=== PATIENT | male | born 1985 | race African-American/Black ===

== ENCOUNTER 2022-12-26 16:52 | Observation (INO) | payer OTHER ==
[2022-12-26 17:01] VITALS: BMI 26.5
[2022-12-26] MEDS ORDERED: amLODIPine BESYLATE 5 MG TABLET (FP) PO ONE (17:49)
[2022-12-26] MEDS ORDERED: LISINOPRIL 5 MG TABLET PO ONE (17:49)
[2022-12-26] MEDS ORDERED: HYDROCHLOROTHIAZIDE 25 MG TABLET (FP) PO ONE (17:49)
[2022-12-26] MEDS ORDERED: amLODIPine BESYLATE 5 MG TABLET (FP) ONE (18:02)
[2022-12-26] MEDS ORDERED: HYDROCHLOROTHIAZIDE 25 MG TABLET (FP) ONE (18:03)
[2022-12-26] MEDS ORDERED: LISINOPRIL 5 MG TABLET ONE (18:03)
[2022-12-26 19:10] LABS: BASO % 0.3 % (0-2.0); EOS % 1.6 % (0-4.5); HEMATOCRIT 42.9 % (35.4-49); HEMOGLOBIN 14.6 GM/dL (11.7-16.9); LYMPH % 48.4 % (8-40); MCHC 33.9 g/dl (32.0-35.9); MEAN CELL VOLUME 94.4 fl (80-96); MEAN PLT VOLUME 9.1 fl (7.5-11.1); MONO % 7.5 % (3.8-10.2); NEUT % 42.2 % (42.8-82.8); PLATELET COUNT 169 10^3/uL (134-434); RBC 4.55 M/mm3 (4.00-5.60); RDW 15.3 % (11.9-15.9); WHITE BLOOD COUNT 5.7 K/mm3 (4.0-10.0)
[2022-12-26 19:36] LABS: POTASSIUM 3.3 mmol/L (3.5-5.1)
[2022-12-26 19:39] LABS: BLOOD UREA NITROGEN 14.4 mg/dL (7-18); CALCIUM 9.8 mg/dL (8.5-10.1)
[2022-12-26] MEDS ORDERED: POTASSIUM CHLORIDE ORAL LIQUID 20 MEQ/15 ML PO ONE (19:41)
[2022-12-26 19:44] LABS: BILIRUBIN,TOTAL 0.3 mg/dL (0.2-1); TOT PROT 7.7 g/dl (6.4-8.2)
[2022-12-26 19:47] LABS: N-TERMINAL BNP 223.2 pg/ml (5-125)
[2022-12-26] MEDS ORDERED: POTASSIUM CHLORIDE ORAL LIQUID 20 MEQ/15 ML ONE (20:12)
[2022-12-26] MEDS ORDERED: LISINOPRIL 20 MG TABLET PO ONE (21:02)
[2022-12-26] MEDS ORDERED: LISINOPRIL 20 MG TABLET ONE (21:46)
[2022-12-26] MEDS ORDERED: LISINOPRIL 20 MG TABLET PO SCH (22:00)
[2022-12-27] MEDS ORDERED: hydrALAZINE HCL 20 MG/ML VIAL IVPB PRN (01:17)
[2022-12-27] MEDS ORDERED: hydrALAZINE HCL 20 MG/ML VIAL ONE (01:41)
[2022-12-27 07:46] LABS: HEMATOCRIT 45.8 % (35.4-49); HEMOGLOBIN 14.8 GM/dL (11.7-16.9); MCH 31.2 pg (25.7-33.7); MCHC 32.3 g/dl (32.0-35.9); MEAN CELL VOLUME 96.5 fl (80-96); MEAN PLT VOLUME 9.9 fl (7.5-11.1); PLATELET COUNT 171 10^3/uL (134-434); RBC 4.74 M/mm3 (4.00-5.60); WHITE BLOOD COUNT 5.3 K/mm3 (4.0-10.0)
[2022-12-27 08:27] LABS: POTASSIUM 3.1 mmol/L (3.5-5.1)
[2022-12-27 08:31] LABS: CALCIUM 9.2 mg/dL (8.5-10.1)
[2022-12-27 08:35] LABS: ALBUMIN 3.7 g/dl (3.4-5.0); BLOOD UREA NITROGEN 12.4 mg/dL (7-18)
[2022-12-27 08:37] LABS: TOT PROT 7.4 g/dl (6.4-8.2)
[2022-12-27 08:38] LABS: BILIRUBIN,TOTAL 0.5 mg/dL (0.2-1)
[2022-12-27] MEDS ORDERED: amLODIPine BESYLATE 5 MG TABLET (FP) ONE (09:41)
[2022-12-27] MEDS ORDERED: HYDROCHLOROTHIAZIDE 25 MG TABLET (FP) ONE (09:42)
[2022-12-27] MEDS ORDERED: LISINOPRIL 20 MG TABLET ONE (09:42)
[2022-12-27 09:47] VITALS: BP 165/103; PULSE 85; RESP 20; TEMP 98.1
[2022-12-27] MEDS ORDERED: amLODIPine BESYLATE 5 MG TABLET (FP) PO SCH (10:00)
[2022-12-27] MEDS ORDERED: ENOXAPARIN NA (PORCINE) 40 MG/0.4 ML DISP.SYRIN SQ SCH (10:00)
[2022-12-27] MEDS ORDERED: HYDROCHLOROTHIAZIDE 25 MG TABLET (FP) PO SCH (10:00)
[2023-01-02 15:08] LABS: RENIN ACTIVITY(PRA) 1.913 ng/mL/hr (0.167-5.380)
== END 2022-12-27 10:00 | disposition home or self-care (01) ==
LOC: JER 16:52 → JERBED 18:37
PROVIDERS: ADMIT Internal Medicine; ATTEND Internal Medicine
PROC: 3E033GC Introduction of Other Therapeutic Substance into Peripheral Vein, Percutaneous Approach (ICD-10-PCS; principal; 2022-12-26)
DX: I10 Essential (primary) hypertension (principal); E87.6 Hypokalemia; Z91.148 Patient's other noncompliance with medication regimen for other reason; R73.03 Prediabetes; Z29.89 Encounter for other specified prophylactic measures; F17.200 Nicotine dependence, unspecified, uncomplicated
CPT/HCPCS: 36415; 71046-TC-FY; 80053; 80061; 82088; 82533; 83036; 83735; 83880; 84100; 84244; 84443; 84484; 85025; 85027; 93005; 93010; 96374; 99285-25; G0378

== ENCOUNTER 2023-03-21 14:51 | Emergency (ER) | payer SELFPAY ==
[2023-03-21 15:03] VITALS: BP 150/94; PULSE 82; RESP 18; TEMP 98.2; BMI 28.7
[2023-03-21] MEDS ORDERED: ACETAMINOPHEN 500 MG TABLET (FP) PO ONE (17:11)
[2023-03-21] MEDS ORDERED: KETOROLAC TROMETHAMINE 30 MG/1 ML VIAL IM ONE (17:11)
[2023-03-21] MEDS ORDERED: ACETAMINOPHEN 500 MG TABLET (FP) ONE (17:23)
[2023-03-21] MEDS ORDERED: KETOROLAC TROMETHAMINE 30 MG/1 ML VIAL ONE (17:23)
== END 2023-03-21 18:56 | disposition home or self-care (01) ==
LOC: JER 14:51 → JERFT 14:51
PROC: 3E0233Z Introduction of Anti-inflammatory into Muscle, Percutaneous Approach (ICD-10-PCS; principal; 2023-03-21)
DX: M25.461 Effusion, right knee (principal); M25.561 Pain in right knee; X50.9XXA Other and unspecified overexertion or strenuous movements or postures, initial encounter; Y93.01 Activity, walking, marching and hiking; Y92.009 Unspecified place in unspecified non-institutional (private) residence as the place of occurrence of the external cause
CPT/HCPCS: 73562-TC-RT-FY; 99284-25